=== PATIENT | male | born 1980 | race Caucasian/White ===

== ENCOUNTER → 2016-10-24 08:37 | Outpatient (CLI) | payer OTHER | END | disposition home or self-care (01) | LOC: D.MRI 09-26 09:00 | DX: G35 Multiple sclerosis (principal) ==

== ENCOUNTER 2019-07-12 05:31 | Day surgery (SDC) | payer OTHER ==
[~2019-07-12] VITALS: Ht 185.4 cm; Wt 89.8 kg
[2019-07-12 06:27] LABS: HEMATOCRIT 42.8 % (42.0-54.0); HEMOGLOBIN 14.8 g/dL (13.5-17.5); MCH 29.3 pg (26.0-34.0); MCHC 34.6 g/dL (31.0-37.0); MCV 84.8 fL (80.0-100.0); MEAN PLATELET VOLUME 8.3 fL (7.4-10.4); RBC 5.05 10x6/uL (4.20-6.10); RDW 12.6 % (11.5-14.5); WBC 4.3 10x3/uL (4.8-10.8)
[2019-07-12] MEDS ORDERED: VITAMIN D31000 UNIT PO (06:46)
[2019-07-12] MEDS ORDERED: VALIUM5 MG PO (06:47)
[2019-07-12] MEDS ORDERED: MIRALAX17 GM PO (06:48)
[2019-07-12] MEDS ORDERED: BACLOFEN10 MG PO (06:49)
[2019-07-12] MEDS ORDERED: PAMELOR 25 MG C25 MG PO (06:49)
[2019-07-12] MEDS ORDERED: TEGRETOL200 MG PO (06:49)
[2019-07-12] MEDS ORDERED: OMEPRAZOLE20 M1 PO (06:50)
[2019-07-12] MEDS ORDERED: METOPROLOL TART25 MG PO (06:50)
[2019-07-12 06:57] VITALS: Ht 185.4 cm; Wt 89.8 kg
--- NOTE | 2019-07-12 07:35 | NUR ---
DR JEAN NOTIFIED AND REVIEWED PT BEHAVIOR AND ASSESSMENT RESULTS. PT IS A LOW RISK PER DR JEAN. DR JEAN STATED TO GIVE RESOURCES TO PT AT TIME OF DISCHARGE. NO FURTHER ORDERS AT THIS TIME. RESOURCES REVIEWED WITH PT AND HE VERBALIZED UNDERSTANDING.
--- NOTE | 2019-07-12 10:58 | OP ---
PATIENT NAME: YAYA ALLEN MEDICAL RECORD: [id number] :78 LOCATION:[id number] ADMISSION DATE: SURGEON: JOVANNA SHELTON MD DATE OF OPERATION: 07/12/2019 SURGEON: Jovanna Shelton MD ANESTHESIA: TIVA by Lloyd Salinas MD, 300 mg of propofol was given. DIAGNOSIS: Neurogenic bladder due to multiple sclerosis. PROCEDURE: Cystoscopy. FINDINGS: Inflamed bladder without any bladder tumors. Single ureteral orifices bilaterally with a small capacity bladder. BLOOD LOSS: Minimal. CLINICAL HISTORY: This is a 39-year-old male, who is a prisoner. He has multiple sclerosis and he has an indwelling Andujar catheter. The prisoner requested cystoscopy for bladder cancer check. He is not allergic to any medications. 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 DESCRIPTION OF PROCEDURE: The patient was given IV sedation. He was placed into lithotomy position and prepped and draped. A 17-Amharic cystoscope was used for visualization. There was diffuse inflammation of the bladder and the prostatic urethra from the indwelling Andujar catheter. There was a small polypoid lesion on the right dome of the bladder. When I switched the bridge for the biopsy forceps, the patient started moving around somewhat and then created a tremendous amount of bleeding from the bladder neck region. There was no obvious bleeders; however. I used an [employer] evacuator to remove some of the blood and there were no clots that came out. I decided not to try to do any further investigation. I did not see any tumors. The scope was removed and a 16-Amharic Andujar catheter was inserted. The balloon was inflated with 10 cc of sterile water. TRANSINT:[id number] Voice Confirmation ID: [id number] DOCUMENT ID: [id number] JOVANNA SHELTON MD at 1058 CC: [id number] DICTATION DATE: 07/12/19 0941 FORENSIC LOCKSMITH: 07/12/19 1044 [place] [id number] [place] [id number]
--- NOTE | 2019-07-12 14:01 | NUR ---
1130 IV DC'D WITH CATH INTACT ASSISSTED WITH GETTING DRESSED.
== END 2019-07-12 11:50 | disposition home or self-care (01) ==
LOC: D.OPS 05:31
PROVIDERS: Anesthesiology; ATTEND Urology
DX: N31.9 Neuromuscular dysfunction of bladder, unspecified (principal); G35 Multiple sclerosis; R06.02 Shortness of breath